=== PATIENT | female | born 1980 | race American Indian/Alaskan Native ===

== ENCOUNTER 2016-07-20 10:00 | Inpatient (IN) | payer BC ==
[2016-09-05 12:23] LABS: Basophils % (Auto) 1.1 % (0.0-1.8); Eosinophils % (Auto) 4.2 % (0.0-4.3); Hematocrit 26.2 % (30.3-42.9); Hemoglobin 8.1 gm/dl (10.1-14.3); Mean Corpuscular HGB Conc 31 % (30-34); Platelet Count 361 K/mm3 (140-440); Red Blood Count 3.81 M/mm3 (3.65-5.03); Red Cell Distribution Width 18.1 % (13.2-15.2); White Blood Count 5.8 K/mm3 (4.5-11.0)
[2016-09-05 12:35] LABS: Mean Corpuscular Hemoglobin 21 pg (28-32); Mean Corpuscular Volume 69 fl (79-97)
--- NOTE | 2016-09-05 12:36 | Anesthesia Consultation ---
Anesthesia Consult and Med Hx Date of service: 09/05/16 - Airway Anesthetic Teeth Evaluation: Good, Chipped (LOWER RIGHT MOLAR) ROM Head & Neck: Adequate Mental/Hyoid Distance: Adequate Mallampati Class: Class II Intubation Access Assessment: Probably Good - Pulmonary Exam CTA: Yes - Cardiac Exam Cardiac Exam: RRR - Pre-Operative Health Status ASA Pre-Surgery Classification: ASA2 Proposed Anesthetic Plan: General - Pulmonary Hx Smoking: No Hx Asthma: No Hx Respiratory Symptoms: No (+TB TEST, CXR NEGATIVE) - Cardiovascular System Hx Hypertension: No - Central Nervous System Hx Seizures: No CVA: No Hx Psychiatric Problems: No - Hematic Hx Anemia: Yes - Other Systems Hx Alcohol Use: Yes (occas) Hx Cancer: No Hx Obesity: Yes - Additional Comments Anesthesia Medical History Comments: DOES NOT WANT TAP BLOCK
--- NOTE | 2016-09-06 14:23 | Admit Criteria Form ---
Admission Criteria Documentation: AMBULATORY SURGERY EXCEPTION CRITERIA Ambulatory Surgery Exception Criteria ( Place 'X' for any and all applicable criteria): Surgery or procedure performed on ambulatory basis may require inpatient stay for[A] ANY ONE of the following(1)(2)(3)(4)(5)(6)(7)(8)(9): [X] I. A preoperative situation, condition, or finding that warrants inpatient stay as indicated by ANY ONE of the following: [] a) Inpatient care needed because of severity of a disease or condition rather than the surgery (eg, severe cardiac or respiratory disease, severe infection) (15) (16 ) (17) (18) [] b) Emergent procedure (eg, angioplasty for acute ischemia)(19) [X] c) Complex surgical approach or situation as indicated by ANY ONE of the following(3): [X] i) Open approach needed instead of usual endoscopic, transcatheter, or other less invasive procedure [] ii) Difficult approach because of previous operation [] iii) Airway monitoring required after open neck procedures(20)(21) [] iv) Large mass requiring unusually extensive dissection [] v) Additional complicating feature requiring inpatient care (eg, drain management)(22(23): [] d) Major surgery in a pt with high anesthetic risk as indicated by ANY ONE of the following (2)(3)(5)(7)(8): [] i) ASA risk class III or higher (severe systemic disease impairing function) [D] [] ii) Advanced age (eg, older than 85 years)(14)(24) [] iii) Symptomatic heart failure(25) [] iv) Symptomatic asthma or COPD(8)(21) [] v) Morbid obesity with hemodynamic or respiratory problems(20)( 21)(26)(27) [] vi) Obstructive sleep apnea(20)(21) [] vii) Former premature infants who are younger than 60 weeks [] viii) High risk for severe postoperative abnormalities (eg, severe postoperative hypocalcemia after parathyroidectomy for severe hyperparathyroidism)(27)( 28) [] ix) Unstable angina(25) [] e) Drug-related risk requiring inpatient stay as indicated by ANY ONE of the following(5)(10)(14)(32)(33) [] i) Procedure requires discontinuing drugs or other therapy (eg , antiarrhythmic medication, antiseizure medication), which necessitates inpatient observation or treatment.(18)(31) [] ii) Major surgery and high risk drug use as indicated by ANY ONE of the following: [] 1) Active abuse of cocaine or similar drug [] 2) Monoamine oxidase inhibitor use [] 3) Other drug identified as posing risk [] f) Inadequate outpatient care situation as indicated by ANY ONE of the following(5)(10)(14)(32)(33) [] i) Patient lives remote from medical facility and procedure has urgent complication potential, and temporary nearby residence cannot be arranged [] ii) Patient will have postprocedure incapacitation and inadequate assistance at home, or alternative level of care cannot be arranged. [] iii) Patient will have long general anesthesia or procedure side effect resolution time, and competent person to stay with patient on first postoperative night at home or alternative level of care cannot be arranged. []iv) Other inadequate outpatient situation that cannot be handled by other means [] II. A perioperative event, condition, or finding that warrants inpatient stay as indicated by ANY ONE of the following (1)(2)(3): [] a) Inadequate physiologic recovery: cardiovascular, respiratory, or hemodynamic status not normal or near preoperative baseline(18) [] b) Hemodynamic instability [] c) Patient not alert with near normal or baseline mental status [] d) Temperature not normal or as expected and not appropriate for outpatient treatment of condition [] e) Ambulatory or appropriate activity level status not yet achieved post procedure [E](34)(35)(36) [] f) Operative site not appropriate (eg, unexpected or excessive drainage or bleeding) [] g) Postoperative effects not resolved or adequately managed (eg, significant pain or vomiting not appropriate for outpatient or next level of care)(10)(12) [] h) Complicating features requiring inpatient care as indicated by ANY ONE of the following(37): [] i) Severe complications of procedure (eg, bowel injury, airway compromise, vascular injury,severe hemorrhage) [] ii) Extensive (eg, dissection far beyond usual scope of procedure ) or prolonged (eg, 120 minutes beyond usual) surgery needed requiring inpatient postoperative care [] iii) Conversion to an open or complex procedure that requires inpatient care (eg, open vs laparoscopic cholecystectomy, abdominal vs vaginal hysterectomy)(38) [] iv) Comorbid condition or test result identified during or post procedure that requires inpatient care (7) [] v) Malignant hyperthermia(30) [] vi) Other complicating feature requiring inpatient care(22)(23) Inpatient stay may be needed until ALL of the following are present (1)(2)(3)(4) (5)(6)(10)(14)(33)(40): []a) Physiologic recovery: cardiovascular, respiratory, and hemodynamic status normal or near preoperative baseline []b) Hemodynamic stability []c) Patient alert, with near normal or baseline mental status []d) Temperature appropriate: patient afebrile or temperature appropriate for outpt treatment of condition []e) Activity level appropriate: ambulatory or appropriate activity level post procedure []f) Operative site appropriate as indicated by ALL of the following: []i) Site dry or with expected drainage []ii) Any blood noted is as expected for procedure. []g) Postoperative effects resolved or managed as indicated by ALL of the following: []i) Pain management appropriate for outpatient (or next level of) care(10) []ii) Minimal nausea and vomiting: if present, successfully treated with oral medication(12) []iii) Headache, dizziness, or drowsiness (if present) are mild. []h) Voiding status acceptable as indicated by ANY ONE of the following: []i) Voiding spontaneously []ii) No voiding but instructions given for follow-up in 6 to 8 hours []iii) Urinary catheter in place, and instructions given for follow-up []i) Complicating features requiring inpatient care manageable at a lower level of care(37) []j) Comorbid conditions manageable at a lower level of care(37) The original [employer] content created by [employer] has been revised. The portions of the content which have been revised are identified through the use of italic text or in bold, and [facility] [employer] has neither reviewed nor approved the modified material. All other unmodified content is copyright [employer]). Please see references footnoted in the original [employer] edition 2016 Admission Criteria Met: Yes
[2016-09-07] MEDS ORDERED: PEPCID PO NR (06:00)
[2016-09-07] MEDS ORDERED: NEURONTIN PO NR (06:00)
[2016-09-07] MEDS ORDERED: VERSED IV NR (06:00)
[2016-09-07] MEDS ORDERED: LACTATED RINGERS 1,000 ML IV SCH (06:00)
[2016-09-07] MEDS ORDERED: NACL BACTERIOSTATIC INFILTRATI ONE (06:37)
[2016-09-07] MEDS ORDERED: DECADRON ONE ×2 (07:13→07:19)
[2016-09-07] MEDS ORDERED: DIPRIVAN 10 MG/ML IV ONE (07:13)
[2016-09-07] MEDS ORDERED: SUBLIMAZE ONE ×2 (07:13→07:20)
[2016-09-07] MEDS ORDERED: ZOFRAN ONE (07:14)
[2016-09-07] MEDS ORDERED: BLOXIVERZ ONE (07:14)
[2016-09-07] MEDS ORDERED: ROBINUL ONE ×2 (07:14)
[2016-09-07] MEDS ORDERED: METHYLENE BLUE ONE (07:14)
[2016-09-07] MEDS ORDERED: XYLOCAINE MPF 2% ONE (07:14)
[2016-09-07] MEDS ORDERED: NACL 0.9% 100 ML ONE (07:15)
[2016-09-07] MEDS ORDERED: ZEMURON IV ONE (07:19)
[2016-09-07] MEDS ORDERED: MARCAINE-EPI/PF 0.5%-1:200,000 INFILTRATI ONE (07:19)
[2016-09-07] MEDS ORDERED: CLONIDINE 1,000 MCG/10 ML VIAL EP ONE (07:20)
[2016-09-07] MEDS ORDERED: XYLOCAINE 1% 20 mL ONE (07:20)
[2016-09-07] MEDS ORDERED: NACL 0.9% 500 ML 500 ML IV NR (07:30)
--- NOTE | 2016-09-07 07:34 | History and Physical Report ---
History of Present Illness Date of examination: 09/07/16 Date of admission: 09/07/16 06:21 Chief complaint: fibroids and abnormal uterine bleeding History of present illness: 36y/o G0 with a history of uterine fibroids and menorrhagia. The patient's vaginal bleeding is so significant that she has developed moderate anemia. Ultrasound indicates multiple uterine fibroids with the largest being 6.8cm. Patient desires to preserve her fertility. Past History Past Medical History: other (uterine fibroids) Past Surgical History: myomectomy [facility] ASSISTANT History: herpes Social history: - Obstetrical History : 0 Para: 0 Hx # Term Pregnancies: 0 Number of Pregnancies: 0 Spontaneous Abortions: 0 Induced : 0 Number of Living Children: 0 Medications and Allergies Allergies Allergy/AdvReac Type Severity Reaction Status Date / Time No Known Allergies Allergy Unverified 08/31/16 16:04 Home Medications Medication Instructions Recorded Confirmed Last Taken Type No Known Home Medications [No 08/31/16 08/31/16 Unknown History Reported Home Medications] Active Meds: Active Medications Cefazolin Sodium (Ancef/Sterile Water 2 Gm/20 Ml) 2 gm IV PREOP NR Stop: 09/07/16 21:00 Celecoxib (Celebrex) 200 mg PO PREOP NR Stop: 09/07/16 23:59 Last Admin: 09/07/16 06:40 Dose: 200 mg Famotidine (Pepcid) 20 mg PO PREOP NR Stop: 09/07/16 23:59 Last Admin: 09/07/16 06:40 Dose: 20 mg Gabapentin (Neurontin) 600 mg PO PREOP NR Stop: 09/07/16 23:59 Last Admin: 09/07/16 06:39 Dose: 600 mg Lactated Ringer's (Lactated Ringers) 1,000 mls @ 75 mls/hr IV DIRECT RAMON Last Admin: 09/07/16 06:52 Dose: 75 mls/hr Sodium Chloride (Nacl 0.9% 500 Ml) 500 mls @ 0 mls/hr IV ONCE ONE PRN Reason: As Directed Stop: 09/07/16 07:06 Midazolam HCl (Versed) 2 mg IV PREOP NR Stop: 09/07/16 23:59 Last Admin: 09/07/16 07:27 Dose: 2 mg Review of Systems All systems: negative Genitourinary: vaginal bleeding, pelvic pain - Vital Signs Vital signs: Vital Signs Temp Pulse Resp BP 98 F 80 16 130/90 09/05/16 11:50 09/05/16 11:50 09/05/16 11:50 09/05/16 11:50 Temp Pulse Resp BP Pulse Ox 98 F 80 16 130/90 09/05/16 11:50 09/05/16 11:50 09/05/16 11:50 09/05/16 11:50 - Physical Exam Breasts: Positive: deferred Cardiovascular: Regular rate Lungs: Positive: Clear to auscultation Abdomen: Positive: normal appearance, soft Results Result Diagrams: 09/05/16 11:55 Abnormal lab results 09/05/16 Range/Units 11:55 Crossmatch See Detail All other labs normal. Assessment and Plan - Patient Problems (1) Leiomyoma Current Visit: Yes Status: Acute Plan to address problem: proceed with a myomectomy (2) Menorrhagia Current Visit: Yes Status: Acute Qualifiers: Menorrahagia type: M (3) Anemia Current Visit: Yes Status: Acute Qualifiers: Anemia type: A Iron deficiency anemia type: I Vitamin B12 deficiency anemia type: V Folate deficiency anemia type: F Bone marrow failure anemia type: B Hemolytic anemia type: H Other causes of anemia: O Chronic kidney disease stage: C
[2016-09-07] MEDS ORDERED: ACD-A 500 ML IV ONE (07:45)
[2016-09-07] MEDS ORDERED: ANCEF/STERILE WATER 2 GM/20 ML IV NR (08:00)
[2016-09-07] MEDS ORDERED: NEO SYNEPHRINE/NS Syringe(OR USE) IV ONE (08:00)
[2016-09-07] MEDS ORDERED: LACTATED RINGERS 1,000 ML ONE (08:20)
[2016-09-07] MEDS ORDERED: ACD-A IV ONE (08:24)
[2016-09-07] MEDS ORDERED: NACL 0.9% IV ONE (08:36)
[2016-09-07] MEDS ORDERED: NACL 0.9% IR ONE (08:38)
[2016-09-07] MEDS ORDERED: DILAUDID ONE (09:21)
--- NOTE | 2016-09-07 09:52 | Operative Report ---
Operative Report Operative Report: Date of procedure: 09/07/2016 Pre-operative diagnosis: Symptomatic uterine fibroids; dysfunctional uterine bleeding; iron deficiency anemia Post-operative diagnosis: Same as above Procedure name(s): Exploratory laparotomy; myomectomy; lysis of adhesions; left ovarian cystectomy Surgeon: Akua Fonseca M.D. Alteration Workroom Supervisor: Treasure Ruiz M.D. Anesthesia: Gen. endotracheal anesthesia Findings Enlarged fibroid uterus with a 7 cm cyst of serosal myoma; pelvic adhesive disease; left ovarian cyst Estimated blood loss: 600 mL Cell saver replacement: 225 mL Procedure The patient was taken to the operating room and given general tracheal anesthesia without complication. The patient was prepped and draped in a normal sterile fashion. A Pfannenstiel skin incision was made down to layer of the fascia was nicked in the midline and extended laterally with the Bovie cautery. The superior aspect of the rectus vas was grasped with Yolanda clamps 2 and the rectus muscles off sharply. This was done in inferior fashion as well. The rectus muscle in the midline and the peritoneum entered sharply. Upon entry into the uterine cavity was noted that the uterus was adherent to the bowel posteriorly and there were multiple anterior adhesions also. Sharp dissection had to be performed in order to release the adhesions. A large serosal 7 cm myoma was noted on the fundal portion of the uterus. The Bovie cautery was used in order to excise the subserosal myoma. The myometrium was injected with diluted Pitressin. A vertical anterior fundal incision was made in order to access an anterior myoma. There was noted to be entry into the endometrial cavity. Multiple submucosal myomas were removed through this incision. An additional posterior myometrial incision was made in order to access an additional myoma. In conclusion 9 leiomyomas were removed. The endometrium was then reapproximated with 2-0 Vicryl in a running fashion. The myometrium was repaired in multiple layers with 2-0 Vicryl in a running fashion. The posterior incision was closed in a similar fashion. Hemostasis was assured. Attention was then turned to the patient's left adnexa which was noted to have an enlarged ovarian cyst. The cyst was excised with the Metzenbaum scissors. Surgicel was placed in the ovarian cortex. Interceed was applied over the uterine incisions. Tisseel was also placed on the incisions. The warm laparotomy sponges were removed. There was noted to be multiple adhesions of the fallopian tubes to the surrounding tissue. The peritoneum was then closed in a running fashion incorporating the rectus muscle with 2-0 Vicryl. The fascia was then closed with 0 Vicryl in a running fashion. The skin was then reapproximated with 3-0 Monocryl on a Yordan needle subcuticular fashion. All sponge laps and needle counts were correct 2. A pressure dressing were applied to the incision. The patient was then successfully extubated and taken to the recovery room in stable condition. This patient is not a candidate for vaginal delivery.
[2016-09-07] MEDS ORDERED: NACL 0.9% 1000 ML 1,000 ML ONE (09:59)
[2016-09-07] MEDS ORDERED: PERCOCET 5/325 PO PRN (11:00)
[2016-09-07] MEDS ORDERED: MORPHINE PCA 30MG/30ML IV SCH (11:00)
[2016-09-07] MEDS ORDERED: NARCAN 0.4 MG/1 ML IV PRN (11:00)
[2016-09-07] MEDS ORDERED: TYLENOL PO PRN (11:30)
[2016-09-07] MEDS ORDERED: MILK OF MAGNESIA PO PRN (11:30)
[2016-09-07] MEDS ORDERED: ZOFRAN IV PRN (12:00)
--- NOTE | 2016-09-07 13:37 | Post Anesthesia Evaluation ---
- Post Anesthesia Evaluation Patient Participated: Yes Airway Patent: Yes Stable Respiratory Function: Yes Nausea/Vomiting: No Temp > 96.8F: Yes Pain Manageable: Yes Adequeate Hydration: Yes Anesthesia Complications: No
[2016-09-07] MEDS ORDERED: MOTRIN PO PRN (14:00)
[2016-09-07] MEDS: TORADOL IV SCH ×2 (17:00→22:58)
[2016-09-07] MEDS: D5LR 1,000 ML IV SCH (18:37)
[2016-09-08] MEDS: D5LR 1,000 ML IV SCH (02:03)
[2016-09-08 05:13] LABS: Hematocrit 29.3 % (30.3-42.9); Hemoglobin 9.3 gm/dl (10.1-14.3)
[2016-09-08] MEDS: TORADOL IV SCH ×2 (05:49→11:51)
--- NOTE | 2016-09-08 13:48 | Progress Note ---
Assessment and Plan - Patient Problems (1) Leiomyoma Current Visit: Yes Status: Acute Plan to address problem: Patient doing well Routine postoperative care Advanced diet as tolerated. (2) Menorrhagia Current Visit: Yes Status: Acute Qualifiers: Menorrahagia type: M (3) Anemia Current Visit: Yes Status: Acute Qualifiers: Anemia type: A Iron deficiency anemia type: I Vitamin B12 deficiency anemia type: V Folate deficiency anemia type: F Bone marrow failure anemia type: B Hemolytic anemia type: H Other causes of anemia: O Chronic kidney disease stage: C Subjective - Subjective Date of service: 09/08/16 Interval history: The patient is still well. The patient was tolerating a clear diet without complication. She reports voiding after removal of her [place]. Patient reports: appetite normal, voiding normally, pain well controlled Objective - Vital Signs Latest vital signs: Vital Signs Temp Pulse Resp BP 09/08/16 12:05 18 09/08/16 10:05 18 09/08/16 08:05 18 09/08/16 06:50 18 09/08/16 04:15 98.6 F 71 20 101/58 09/08/16 00:00 98.1 F 78 20 90/51 09/07/16 22:20 17 09/07/16 20:10 99.2 F 50 L 20 100/57 09/07/16 18:37 18 09/07/16 17:00 18 09/07/16 13:52 18 Intake and Output 09/07/16 09/08/16 09/08/16 22:59 06:59 14:59 Intake Total 240 1120 Output Total 900 800 Balance -660 320 Intake: IV 1000 D5lr 1,000 ml @ 125 mls/ 1000 hr IV DIRECT RAMON Rx#: [id number] Oral 240 120 Output: Urine 900 800 Indwelling Catheter 900 800 Other: Total, Intake Amount 240 120 Total, Output Amount 900 800 Voiding Method Indwelling Catheter - Exam Abdomen: Present: normal appearance, soft - Labs Labs: Abnormal lab results 09/05/16 09/08/16 Range/Units 11:55 04:45 Hgb 9.3 L (10.1-14.3) gm/dl Hct 29.3 L (30.3-42.9) % Crossmatch See Detail
--- NOTE | 2016-09-08 14:00 | Progress Note ---
Subjective Date of service: 09/08/16 Interval history: 1st POD after abdominal myomectomy Patient is in the bed, relatively comfortable. Pain is well controlled with pain meds. Ambulated. No nausea or vomiting. No anesthesia complications Objective - Constitutional Vitals: Vital Signs - 12hr 09/08/16 09/08/16 09/08/16 04:15 06:50 08:05 Temperature 98.6 F Pulse Rate [ 71 Left] Respiratory 20 18 18 Rate Blood Pressure 101/58 [Left Arm] 09/08/16 09/08/16 10:05 12:05 Temperature Pulse Rate [ Left] Respiratory 18 18 Rate Blood Pressure [Left Arm] - Labs CBC & Chem 7: 09/08/16 04:45 Labs: Abnormal lab results 09/05/16 09/08/16 Range/Units 11:55 04:45 Hgb 9.3 L (10.1-14.3) gm/dl Hct 29.3 L (30.3-42.9) % Crossmatch See Detail
--- NOTE | 2016-09-08 17:40 | Discharge Summary ---
Providers - Providers Date of Admission: 09/07/16 06:21 Date of discharge: 09/08/16 Attending physician: TANIA ROSALES Primary care physician: [facility] ASSISTANT Hospitalization Reason for admission: other (uterine fibroids) Procedure: other (myomectomy) Incision: normal Discharge diagnosis: other (uterine fibroids) Hospital course: The patient was admitted the day of surgery and underwent a myomectomy. Secondary to her anemia, she was transfused 2 units intraoperatively. Her postop course went well. She tolerated a regular diet by pod #1 and was discharged home Condition at discharge: Good Disposition: DC-01 TO HOME OR SELFCARE - Discharge Diagnoses (1) Leiomyoma Status: Acute (2) Menorrhagia Status: Acute Qualifiers: Menorrahagia type: M (3) Anemia Status: Acute Qualifiers: Anemia type: A Iron deficiency anemia type: I Vitamin B12 deficiency anemia type: V Folate deficiency anemia type: F Bone marrow failure anemia type: B Hemolytic anemia type: H Other causes of anemia: O Chronic kidney disease stage: C Plan - Discharge Medications Prescriptions: Docusate Sodium [Colace] 100 mg PO BID PRN #60 capsule PRN Reason: Constipation Ibuprofen [Motrin] 800 mg PO Q8HR PRN #60 tablet PRN Reason: Pain Oxycodone HCl/Acetaminophen [Percocet 7.5/325 mg] 1 each PO Q6HR PRN #45 tablet PRN Reason: Pain - Provider Discharge Summary Activity: no sex for 6 weeks, no heavy lifting 4 weeks, no strenuous exercise Diet: routine Instructions: routine Additional instructions: [] Smoking cessation referral if applicable(refer to patient education folder for contact #) [] Refer to [facility] Booklet Call your doctor immediately for: * Fever > 100.5 * Heavy vaginal bleeding ( >1 pad per hour) * Severe persistent headache * Shortness of breath * Reddened, hot, painful area to leg or breast * Drainage or odor from incision. * Keep incision clean and dry at all times and follow doctor's instructions regarding bathing/showering followup in 4 weeks - Follow up plan
[2016-09-08 19:01] VITALS: BP 108/52
== END 2016-09-08 18:35 | disposition home or self-care (01) | DRG 743 ==
LOC: 3A 09-07 06:21 → OB 09-07 11:30
PROVIDERS: ADMIT Obstetrics & Gynecology; ATTEND Obstetrics & Gynecology
PROC: 0UB90ZZ Excision of Uterus, Open Approach (ICD-10-PCS; principal; 2016-09-07)
PROC: 0UB10ZZ Excision of Left Ovary, Open Approach (ICD-10-PCS; 2016-09-07)
PROC: 30233N1 Transfusion of Nonautologous Red Blood Cells into Peripheral Vein, Percutaneous Approach (ICD-10-PCS; 2016-09-07)
DX: D25.9 Leiomyoma of uterus, unspecified (principal); N92.0 Excessive and frequent menstruation with regular cycle; N93.8 Other specified abnormal uterine and vaginal bleeding; D50.9 Iron deficiency anemia, unspecified
CPT/HCPCS: 36415; 64450; 84703; 85014; 85018; 85025; 86850; 86900; 86901; 86920; 88305; C1765; C9250; J0690; J0735; J1100; J1170; J1885; J2250; J2270; J2370; J2405; J2704; J2710; J3010; J7030; J7120; J7121; P9016; Q9968